=== PATIENT | male | born 1950 | race Caucasian/White ===

== ENCOUNTER → 2020-12-15 | Outpatient (CLI) | payer OTHER | LOC: EMI 08:08 | DX: G45.9 Transient cerebral ischemic attack, unspecified (principal) | CPT/HCPCS: 70551 ==

== ENCOUNTER → 2021-03-25 | Outpatient (CLI) | payer OTHER ==
[2021-03-25 15:01] LABS: HEMOGLOBIN 11.6 gm/dl (14.0-17.5); RED BLOOD COUNT 3.92 M/UL (4.20-5.50); WHITE BLOOD COUNT 7.2 K/UL (4.5-11.0)
[2021-03-25 15:24] LABS: BUN/CREATININE RATIO 18 (0-10)
[2021-03-26 09:14] LABS: HBSAG SCREEN Negative (Negative); HEP A AB, IGM Negative (Negative); HEP B CORE AB, IGM Negative (Negative); HEP C VIRUS AB <0.1 (0.0-0.9)
[2021-03-26 15:12] LABS: ANTI-DSDNA ANTIBODIES <1 IU/mL (0-9)
== END ==
LOC: LAB 13:52
PROVIDERS: Nurse Practitioner Family
DX: D69.6 Thrombocytopenia, unspecified (principal); R51.9 Headache, unspecified; R94.5 Abnormal results of liver function studies
CPT/HCPCS: 36415; 80053; 80074; 82150; 82728; 83540; 83550; 83690; 85025; 86225

== ENCOUNTER → 2021-03-26 | Outpatient (CLI) | payer OTHER | LOC: EXRD 07:48 | DX: R79.89 Other specified abnormal findings of blood chemistry (principal); K76.89 Other specified diseases of liver | CPT/HCPCS: 76705 ==

== ENCOUNTER → 2021-07-28 | Outpatient (CLI) | payer OTHER | LOC: KOH-I 10:30 | DX: Z13.6 Encounter for screening for cardiovascular disorders (principal) | CPT/HCPCS: 76706-PO ==

== ENCOUNTER → 2021-09-21 | Outpatient (CLI) | payer OTHER | LOC: KOH-I 15:39 | DX: M54.12 Radiculopathy, cervical region (principal) | CPT/HCPCS: 72040 ==

== ENCOUNTER → 2021-10-01 | Outpatient (CLI) | payer OTHER | LOC: EMI 15:46 | DX: M50.123 Cervical disc disorder at C6-C7 level with radiculopathy (principal) | CPT/HCPCS: 72141 ==